=== PATIENT | female | born 1950 | race Caucasian/White ===

== ENCOUNTER 2017-01-08 15:01 | Inpatient (IN) | payer MEDICARE, BC ==
[~2017-01-08] VITALS: Ht 165.1 cm; Wt 94.0 kg
[2017-02-17] VITALS (11 sets, daily range): BP systolic 95–135; BP diastolic 52–84; PULSE 55–102; TEMP 98–98.7
[2017-02-17] MEDS ORDERED: PROTONIX20 MG PO (09:14)
[2017-02-17] MEDS ORDERED: VITAMIN C500 MG PO (09:21)
[2017-02-17] MEDS ORDERED: KRILL OIL 3001 EACH PO (09:21)
[2017-02-17] MEDS ORDERED: ALLEGRA 60MG TA60 MG PO (09:22)
[2017-02-17] MEDS ORDERED: PROBIOTIC ACID1 EAC3 PO (09:22)
[2017-02-17] MEDS ORDERED: CALCIUM CARBON650 M2 PO (09:23)
[2017-02-17] MEDS ORDERED: MULTI VITAMINS1 TAB PO (09:23)
[2017-02-17] MEDS ORDERED: VITAMIN D 400400 IU PO (09:23)
[2017-02-17] MEDS ORDERED: ZYLOPRIM 100MG100 MG PO (09:24)
[2017-02-17] MEDS ORDERED: COZAAR 50MG50 MG/TAB PO (09:24)
[2017-02-17] MEDS ORDERED: K-TAB20 PO (09:25)
[2017-02-17] MEDS ORDERED: ARMOUR THYROID60 MG PO (09:26)
[2017-02-17] MEDS ORDERED: ARMOUR THYROID90 MG PO (09:26)
[2017-02-17] MEDS ORDERED: HCTZ 25MG TAB25 MG PO (09:27)
[2017-02-17] MEDS ORDERED: ZOCOR 40MG40 MG PO (09:27)
[2017-02-17] MEDS ORDERED: LYRICA200 MG PO (09:28)
[2017-02-17] MEDS ORDERED: ASPIRIN E.C. 8181 MG PO (09:28)
[2017-02-17] MEDS ORDERED: JANUVIA 100MG100 MG PO (09:29)
[2017-02-17] MEDS ORDERED: LASIX 20MG TABL20 MG PO (09:30)
[2017-02-18] VITALS (7 sets, daily range): BP systolic 122–137; BP diastolic 59–85; PULSE 71–107; TEMP 97.3–98.9
[2017-02-18 06:33] LABS: HEMATOCRIT 32.2 % (37.0-47.0); HEMOGLOBIN 10.6 g/dl (12.5-16.0)
[2017-02-19 05:49] VITALS: BP 144/83; PULSE 102; TEMP 98
[2017-02-19 06:46] LABS: HEMOGLOBIN 11.2 g/dl (12.5-16.0)
[2017-02-19] MEDS ORDERED: NORCO 325 MG-7.1 TAB PO (06:46)
[2017-02-19] MEDS ORDERED: ASPI325T6 PO (06:46)
[2017-02-19] MEDS ORDERED: SENOKOT S 50 MG1 TAB PO (06:47)
[2017-02-19 07:57] VITALS: BP 121/76; PULSE 92; TEMP 98.6
[2017-02-19 11:19] VITALS: BP 129/84; PULSE 89; TEMP 98.2
== END 2017-02-19 13:30 | disposition home or self-care (01) | DRG 470 ==
LOC: JCC 02-17 07:57
PROVIDERS: Orthopaedic Surgery
PROC: 0SRD0J9 Replacement of Left Knee Joint with Synthetic Substitute, Cemented, Open Approach (ICD-10-PCS; principal; 2017-02-17 12:55)
DX: M17.12 Unilateral primary osteoarthritis, left knee (principal); E11.9 Type 2 diabetes mellitus without complications
CPT/HCPCS: A4314; A4315; A9284; C1713; C1776; J0690; J2250; J2704; J3010; J7030

== ENCOUNTER → 2020-03-20 | Outpatient (CLI) | payer MEDICARE, BC ==
[~2020-03-20] MED LIST: ALLEGRA 60MG TA60 MG PO; ARMOUR THYROID60 MG PO; ARMOUR THYROID90 MG PO; ASPI325T6 PO; ASPIRIN E.C. 8181 MG PO; CALCIUM CARBON650 M2 PO; COZAAR 50MG50 MG/TAB PO; HCTZ 25MG TAB25 MG PO; JANUVIA 100MG100 MG PO; K-TAB20 PO; KRILL OIL 3001 EACH PO; LASIX 20MG TABL20 MG PO; LYRICA200 MG PO; MULTI VITAMINS1 TAB PO; NORCO 325 MG-7.1 TAB PO; PROBIOTIC ACID1 EAC3 PO; PROTONIX20 MG PO; SENOKOT S 50 MG1 TAB PO; VITAMIN C500 MG PO; VITAMIN D 400400 IU PO; ZOCOR 40MG40 MG PO; ZYLOPRIM 100MG100 MG PO
== END ==
LOC: COL.RAD 03-19 10:00
DX: M25.552 Pain in left hip (principal)
CPT/HCPCS: J3301; Q9967

== ENCOUNTER 2020-04-16 15:48 | Inpatient (IN) | payer MEDICARE, BC ==
[~2020-04-16] VITALS: Ht 162.6 cm; Wt 94.0 kg
[~2020-04-16 15:48] MED LIST changes: -MULTI VITAMINS1 TAB PO; +MULTIPLE VITAMI1 TA5 PO
[2020-06-19] VITALS (12 sets, daily range): BP systolic 87–135; BP diastolic 47–77; PULSE 62–95; TEMP 97.7–99.5
[2020-06-19] MEDS ORDERED: XYZAL5 MG PO (06:14)
[2020-06-19] MEDS ORDERED: FLONASE NASAL S16 GM NS (06:22)
[2020-06-19] MEDS ORDERED: ULTRAM 50MG TAB50 MG PO (06:23)
[2020-06-19] MEDS ORDERED: ZANAFLEX2 MG PO (06:23)
[2020-06-19] MEDS ORDERED: VICTOZA6 MG/ML SQ (06:24)
--- NOTE | 2020-06-19 10:45 | NUR ---
Patient up from OR. Alert and oriented x 3. Spouse at bedside. Bulky dressing to left hip. Miky hose and SCDs to BLE. Post op fluids infusing per orders. BP soft, patient asymptomatic. States she has sensation down to her knees from spinal anesthesia. Pedal pulses intact. Patient denies pain at this time. Denies further needs at this time.
--- NOTE | 2020-06-19 18:28 | NUR ---
Patient up to BSC then recliner with SBA, steady gait. Pain medication given for groin/hip pain this afternoon, patient states she "pulled a muscle in her groin which is causing more pain than the hip". Medications given per orders. Tolerating diet without difficulties. Post op fluids continue infusing per orders. Spouse remains at bedside throghout the day. Denies further needs at this time. Will report off to shift manager.
--- NOTE | 2020-06-19 21:00 | NUR ---
Pt. sitting up in bed at this time. Pt. is a&OX3, assessment complete. IV to lt. forearm patent. Pt. reports pain to lt. hip at a 4 on pain scale, gave pain meds per orders. Dressing to lt. hip CDI. Pt. denies further needs, call light within reach.
[2020-06-20 04:43] VITALS: BP 95/52; PULSE 87; TEMP 98.4
[2020-06-20 04:56] LABS: HEMATOCRIT 31.1 % (37.0-47.0); HEMOGLOBIN 9.9 g/dl (12.5-16.0)
[2020-06-20 08:00] VITALS: BP 101/55; PULSE 88; TEMP 98.4
--- NOTE | 2020-06-20 09:36 | NUR ---
Initial visit; Patient and her thanked [employer] for looking in on June and offering God's blessing and to keep her in [employer]'s prayers.
--- NOTE | 2020-06-20 09:44 | NUR ---
Nba Player met with patient to discuss discharge planning and patient's , Shyam (ph#[phone]) is at bedside. Patient lives in [place], [place] and sees Dr. Raquel Holden for primary care. Patient obtains medications from [facility] with no difficulties. Patient has a rollator, front wheeled walker, shower chair, and commode at home. Patient states her mother who is 87 lives at home with them so they have a chair lift for her mother to get down to the basement. Patient is normally independent with ADLS. Patient has Advance Directives completed however did not bring a copy. Patient states she is meeting with an attorney lawyer to complete a trust and update DPOA if needed. Patient already has outpatient PT set up at [facility] in [place], [place]. Patient worked with PT here and their recommendation is home with outpatient PT. Discharge Plan: Home with and outpatient PT.
[2020-06-20 11:17] VITALS: BP 90/47; PULSE 82; TEMP 98.1
--- NOTE | 2020-06-20 11:30 | NUR ---
Patient is doing well this morning. No complaints of nausea. Her pain ahs been well controlled. Dressing to left hip changed from occlusive dressing to aquacel. Incision well approximated, no reddness. Scant drainage to gauze. Some edema to left hip, ice pack placed to hip. No other changes at this time. CMS intact to LLE. Call light within reach.
[2020-06-20 16:00] VITALS: BP 92/53; PULSE 73; TEMP 98.4
--- NOTE | 2020-06-20 18:30 | NUR ---
Patient has been doing well today. She has been getting around the room with minimal assist. Ultram given after lunch but pain has been well controlled since. No request for additional pain medications. Her has been at bedside all day. She is eating and drinking without issues. No other changes at this time. Call light within reach.
[2020-06-20 20:24] VITALS: BP 110/54; PULSE 84; TEMP 97.7
[2020-06-21 00:45] VITALS: BP 95/47; PULSE 86; TEMP 98.5
[2020-06-21 04:22] VITALS: BP 107/56; PULSE 93; TEMP 98.9
[2020-06-21 07:21] LABS: HEMOGLOBIN 10.1 g/dl (12.5-16.0)
[2020-06-21 07:24] LABS: HEMATOCRIT 31.2 % (37.0-47.0)
[2020-06-21] MEDS ORDERED: ASPI325T6 PO (11:38)
[2020-06-21] MEDS ORDERED: ROXICODONE 55 MG/TAB PO (11:39)
[2020-06-21] MEDS ORDERED: ULTRAM 50MG TAB50 MG PO (11:40)
[2020-06-21] MEDS ORDERED: SENOKOT S 50 MG1 TAB PO (11:41)
--- NOTE | 2020-06-21 12:50 | NUR ---
Patient is discharging home. Discharge instructions discussed with patient. No questions verbalized. INT discontinued by student before her shower. All belongings packed up and sent with patient by her . She already has her PT appointment scheduled. Explained when to remove the dressing and leave off. Patient verbalized understanding. Went over total hip precautions again. Copies of discharge instructions sent with patient. Patient walked out via wheel chair by Allison MILLER.
== END 2020-06-21 12:50 | disposition home or self-care (01) | DRG 470 ==
LOC: INPTSU 06-19 05:02 → SURG 06-19 07:30
PROVIDERS: ADMIT Orthopaedic Surgery
PROC: 0SRB04A Replacement of Left Hip Joint with Ceramic on Polyethylene Synthetic Substitute, Uncemented, Open Approach (ICD-10-PCS; principal; 2020-06-19 07:30)
DX: M16.12 Unilateral primary osteoarthritis, left hip (principal); E11.9 Type 2 diabetes mellitus without complications; E66.9 Obesity, unspecified; Z96.652 Presence of left artificial knee joint; Z88.0 Allergy status to penicillin; Z88.8 Allergy status to other drugs, medicaments and biological substances; Z88.1 Allergy status to other antibiotic agents; Z79.82 Long term (current) use of aspirin; Z68.34 Body mass index [BMI] 34.0-34.9, adult
CPT/HCPCS: A4314; A9284; C1713; C1776; J0690; J2370; J2405; J2704; J7030; J7120